=== PATIENT | female | born 1990 | race American Indian/Alaskan Native ===

== ENCOUNTER 2018-03-30 19:46 | Outpatient (CLI) | payer MEDICAID | END 2018-03-30 20:52 | disposition home or self-care (01) | LOC: TRG 19:46 | PROVIDERS: ATTEND Obstetrics & Gynecology | DX: O47.1 False labor at or after 37 completed weeks of gestation (principal); Z3A.38 38 weeks gestation of pregnancy | CPT/HCPCS: 59025 ==

== ENCOUNTER 2018-08-28 10:48 | Emergency (ER) | payer MEDICAID ==
[2018-08-28 10:57] VITALS: BP 125/81
--- NOTE | 2018-08-28 11:40 | Emergency Department Report ---
ED Lower Extremity HPI - General Chief Complaint: Extremity Injury, Lower Stated Complaint: BUMP ON LEFT ANKLE Time Seen by Provider: 08/28/18 11:27 Source: patient Mode of arrival: Ambulatory Limitations: No Limitations - History of Present Illness Initial Comments: This is a pleasant 27-year-old female who reports that she is not , who presents to the ER with a complaint of nontraumatic left lateral foot cyst, present for months, which started during her previous . She reports the cyst is constant, does not radiate anywhere, occasionally aching in nature, and physical discomfort decreases with rest, and with ibuprofen. Denies fevers, chills, redness, pus, streaking, weakness, numbness. Denies other complaints. Complaint: other -: Gradual, month(s) Injury: Foot: Left Type of Injury: other (no mechanism of injury) Severity: mild Improves With: NSAID Worsens With: weight bearing, movement, palpation Context: other (no mechanism of injury) Other Symptoms: other (minimal swelling) Associated Symptoms: ambulatory Treatments Prior to Arrival: NSAIDS - Related Data Previous Rx's Medication Instructions Recorded Last Taken Type Ferrous Sulfate 325 mg PO BID #60 tablet. 04/16/18 Unknown Rx HYDROcodone/APAP 5-325 [[place] 1 each PO Q6HR PRN #20 tablet 04/16/18 Unknown Rx 5/325] Ibuprofen [Motrin] 800 mg PO Q8HR PRN #30 tablet 04/16/18 Unknown Rx Allergies Allergy/AdvReac Type Severity Reaction Status Date / Time No Known Allergies Allergy Verified 08/28/18 10:53 ED Review of Systems ROS: Stated complaint: BUMP ON LEFT ANKLE Other details as noted in HPI Constitutional: denies: fever Respiratory: denies: cough Cardiovascular: denies: chest pain Gastrointestinal: denies: abdominal pain Genitourinary: denies: dysuria Musculoskeletal: denies: back pain, myalgia Skin: denies: rash Neurological: denies: headache, weakness ED Past Medical Hx - Past Medical History Previous Medical History?: No Hx Hypertension: No Hx Diabetes: No Hx Deep Vein Thrombosis: No Hx Renal Disease: No Hx Sickle Cell Disease: No Hx Seizures: No Hx Asthma: No Hx HIV: No - Surgical History Past Surgical History?: Yes Additional Surgical History: right knee - Social History Smoking Status: Never Smoker Substance Use Type: Alcohol - Medications Home Medications: Home Medications Medication Instructions Recorded Confirmed Last Taken Type Ferrous Sulfate 325 mg PO BID #60 tablet. 04/16/18 Unknown Rx HYDROcodone/APAP 5-325 [[place] 1 each PO Q6HR PRN #20 tablet 04/16/18 Unknown Rx 5/325] Ibuprofen [Motrin] 800 mg PO Q8HR PRN #30 tablet 04/16/18 Unknown Rx ED Physical Exam - General Limitations: No Limitations General appearance: alert, in no apparent distress - Head Head exam: Present: atraumatic, normocephalic - Eye Eye exam: Present: normal appearance, EOMI. Absent: nystagmus - ENT ENT exam: Present: normal exam, normal orophraynx, mucous membranes moist, normal external ear exam - Neck Neck exam: Present: normal inspection, full ROM. Absent: tenderness, meningismus - Respiratory Respiratory exam: Present: normal lung sounds bilaterally. Absent: respiratory distress - Cardiovascular Cardiovascular Exam: Present: regular rate, normal rhythm, normal heart sounds. Absent: bradycardia, tachycardia, irregular rhythm, systolic murmur, diastolic murmur, rubs, gallop - GI/Abdominal GI/Abdominal exam: Present: soft. Absent: distended, tenderness, guarding, rebound, rigid, pulsatile mass - Extremities Exam Extremities exam: Present: normal inspection (on the posterior lateral aspect of the left foot, there is a well-circumscribed cyst, 2 x 3 cm, nontender, with the redness, pus or streaking.Appears to be fluid filled.), full ROM, other (2+ pulses noted in the bilateral upper, lower extremities. Compartments soft. No long bony tenderness. The pelvis is stable.). Absent: tenderness, calf tenderness - Back Exam Back exam: Present: normal inspection, full ROM. Absent: tenderness, CVA tenderness (R), paraspinal tenderness, vertebral tenderness - Neurological Exam Neurological exam: Present: alert, oriented X3, CN II-XII intact, normal gait, other (Extraocular movements intact. Tongue midline. No facial droop. Facial sensation intact to light touch in the V1, V2, V3 distribution bilaterally. 5 and 5 strength in 4 extremities.. Sensation is intact to light touch in 4 extremities.). Absent: motor sensory deficit - Psychiatric Psychiatric exam: Present: normal affect, normal mood - Skin Skin exam: Present: warm, dry, intact, normal color. Absent: rash ED Course Vital Signs 08/28/18 10:53 Temperature 98.1 F Pulse Rate 81 Respiratory 16 Rate Blood Pressure 125/81 O2 Sat by Pulse 99 Oximetry ED Lower Extremity MDM - Lab Data Vital Signs 08/28/18 10:53 Temperature 98.1 F Pulse Rate 81 Respiratory 16 Rate Blood Pressure 125/81 O2 Sat by Pulse 99 Oximetry - Medical Decision Making Differential diagnosis, including not limited to: Cyst Assessment and plan: 27-year-old female with nontender left lateral foot cyst, present for months, is not clinically consistent with abscess, cellulitis, or compartment syndrome. Explained to patient that condition is not emergent, and that she may follow up electively as an outpatient, either with dermatology or plastic surgery, for non-urgent intervention. Patient verbalized understanding. Also advised patient that she may benefit from shoes that have a wide with. She may take [id number]-[id number] medication as needed. Critical care attestation.: If time is entered above; I have spent that time in minutes in the direct care of this critically ill patient, excluding procedure time. ED Disposition Clinical Impression: Skin cyst Disposition: DC-01 TO HOME OR SELFCARE Is pt being admited?: No Does the pt Need Aspirin: No Condition: Stable Instructions: Skin Pseudocyst (ED) Additional Instructions: Patient likely has benign skin cyst, typically not dangerous or life- threatening. Weightbearing as tolerated, physical activities as tolerated, patient may benefit from shoes that have a wide with, and patient may take [id number], ibuprofen, up to 600 mg, with food, every 6 hours as needed for pain, alternating with acetaminophen, [id number], 650 mg, every 4-6 hours as needed for pain. Patient may follow up with a digital project coordinator or plastic surgeon as needed for lori ctive aspiration and cyst removal, if the patient so desires. For the patient's convenience, local advertising specialist and plastic surgeon had been listed in discharge paperwork. Please return to the ER right away with redness, pus, streaking, fevers, chills, new, worsening or different symptoms. Referrals: AYLIN DINERO MD [Staff Physician] - as needed FIDE BONILLA MD [Staff Physician] - as needed
--- NOTE | 2018-08-28 12:45 | XRay Report ---
FINAL REPORT EXAM: XR ANKLE 3+V LT HISTORY: pain and swelling TECHNIQUE: AP, oblique and lateral radiographs of the left ankle. PRIORS: None. FINDINGS: No fracture. No dislocation. Normal mineralization. No soft tissue abnormality. The ankle mortise is symmetric. IMPRESSION: Normal left ankle.
== END 2018-08-28 11:47 | disposition home or self-care (01) ==
LOC: ED 10:48
DX: L72.9 Follicular cyst of the skin and subcutaneous tissue, unspecified (principal)
CPT/HCPCS: 99283

== ENCOUNTER 2019-03-27 10:54 | Emergency (ER) | payer MEDICAID ==
[2019-03-27 11:13] VITALS: BP 132/81
--- NOTE | 2019-03-27 11:13 | Emergency Department Report ---
Blank Doc - Documentation Documentation: This is a 28-year-old female that presents with left upper chest area abscess. This initial assessment/diagnostic orders/clinical plan/treatment(s) is/are subject to change based on patient's health status, clinical progression and re- assessment by fellow clinical providers in the ED. Further treatment and workup at subsequent clinical providers discretion. Patient/guardians urged not to elope from the ED as their condition may be serious if not clinically assessed and managed. Initial orders include: 1- Patient sent to [facility] for further evaluation and treatment
[2019-03-27] MEDS ORDERED: IBUPROFEN PO ONE (13:25)
--- NOTE | 2019-03-27 13:55 | Emergency Department Report ---
Abscess Boil HPI - HPI Chief Complaint: Animal Bite Stated Complaint: SPIDER BITE Time Seen by Provider: 03/27/19 11:11 Duration: >1 Week Location: Chest Severity: Moderate History: Yes Pain, Yes Insect Bite (possible), No Fever, No Purulent Drainage, No Numbness, No Foreign Body, No Previous History HPI: This is a 28-year-old female presents ED complaining of painful swelling to her left upper shoulder. Patient states about last week she was outside when she saw a spider on her she tested it off. Patient states she went to urgent care given some prednisone and Keflex patient states the symptoms of worsening see in the mass more painful. She denies fevers/chills/nausea vomiting. Home Medications: Previous Rx's Medication Instructions Recorded Last Taken Type Ferrous Sulfate 325 mg PO BID #60 tablet. 04/16/18 Unknown Rx HYDROcodone/APAP 5-325 [[place] 1 each PO Q6HR PRN #20 tablet 04/16/18 Unknown Rx 5/325] Clindamycin [Clindamycin CAP] 300 mg PO Q8H #12 cap 03/27/19 Unknown Rx Ibuprofen [Motrin 800 MG tab] 800 mg PO Q8HR PRN #30 tablet 03/27/19 Unknown Rx Sulfamethoxazole/Trimethoprim 1 each PO BID #20 tablet 03/27/19 Unknown Rx [Bactrim DS TAB] Allergies/Adverse Reactions: Allergies Allergy/AdvReac Type Severity Reaction Status Date / Time No Known Allergies Allergy Verified 08/28/18 10:53 ED Review of Systems ROS: Stated complaint: SPIDER BITE Other details as noted in HPI Comment: All other systems reviewed and negative ED Past Medical Hx - Past Medical History Previous Medical History?: No Hx Hypertension: No Hx Diabetes: No Hx Deep Vein Thrombosis: No Hx Renal Disease: No Hx Sickle Cell Disease: No Hx Seizures: No Hx Asthma: No Hx HIV: No - Surgical History Past Surgical History?: Yes Additional Surgical History: right knee - Social History Smoking Status: Never Smoker Substance Use Type: None - Medications Home Medications: Home Medications Medication Instructions Recorded Confirmed Last Taken Type Ferrous Sulfate 325 mg PO BID #60 tablet. 04/16/18 Unknown Rx HYDROcodone/APAP 5-325 [[place] 1 each PO Q6HR PRN #20 tablet 04/16/18 Unknown Rx 5/325] Clindamycin [Clindamycin CAP] 300 mg PO Q8H #12 cap 03/27/19 Unknown Rx Ibuprofen [Motrin 800 MG tab] 800 mg PO Q8HR PRN #30 tablet 03/27/19 Unknown Rx Sulfamethoxazole/Trimethoprim 1 each PO BID #20 tablet 03/27/19 Unknown Rx [Bactrim DS TAB] ED Abscess Boil Physical Exam - Exam General: Vital signs noted. No distress. Alert and acting appropriately. Size: >5 cm Exam: Yes Tenderness, Yes Fluctuance, Yes Surrounding Cellulites/Erythema, Yes Normal Neurologic Exam, Yes Normal Circulation, No Lymphangitis, No Crepitation, No Heart Murmur Exam: Tender, almost 10 cm semi-fluctuant mass noted left upper pectoralis above the left breast close to the shoulder anteriorly I & D Note - I & D Note I & D Note: Patient positioned appropriately, 15cc lidocaine with/without epinephrine was used as a local anesthetic. #11 blade scalpal used for single incision. Additional local anesthetic injected into surrounding viable tissue prior to blunt dissection of loculated adhesions. Copius drainage of pus. Wound packed with iodoform gauze. Procedure tolerated without complications. Wound dressed with sterile 4x4 guaze and paper tape. Pt tolerated procedure well. ED Course Vital Signs 03/27/19 11:12 Temperature 98.2 F Pulse Rate 86 Respiratory 18 Rate Blood Pressure 132/81 O2 Sat by Pulse 99 Oximetry Critical care attestation.: If time is entered above; I have spent that time in minutes in the direct care of this critically ill patient, excluding procedure time. ED Medical Decision Making - Medical Decision Making 28-year-old female presents with left anterior shoulder abscess from a spider bite Assessment strain problems, see I&D note Discussed return in 3 days for wound check and packing removal Past sensory normal patient distress she understands instructions given. ED Disposition Clinical Impression: Abscess of left shoulder Disposition: DC-01 TO HOME OR SELFCARE Is pt being admited?: No Does the pt Need Aspirin: No Condition: Stable Instructions: Abscess (ED), Abscess Incision and Drainage (ED) Additional Instructions: Make sure to follow up with the primary care physician as discussed. Take all your medications as you've been prescribed. Return in 3 days for packing removal and wound check If you have any worsening symptoms or develop new symptoms please return to ED immediately. Prescriptions: Sulfamethoxazole/Trimethoprim [Bactrim DS TAB] 1 each PO BID #20 tablet Clindamycin [Clindamycin CAP] 300 mg PO Q8H #12 cap Ibuprofen [Motrin 800 MG tab] 800 mg PO Q8HR PRN #30 tablet PRN Reason: Pain, Moderate (4-6) Referrals: BENJI DECKER MD [Referring] - 3-5 Days [facility] [Outside] - 3-5 Days Forms: Accompanied Note, Work/School Release Form(ED) Time of Disposition: 14:28
== END 2019-03-27 14:54 | disposition home or self-care (01) ==
LOC: ED 10:54
DX: L02.414 Cutaneous abscess of left upper limb (principal); Z98.890 Other specified postprocedural states; Z79.899 Other long term (current) drug therapy
CPT/HCPCS: 99282

== ENCOUNTER 2019-03-30 19:45 | Emergency (ER) | payer MEDICAID ==
--- NOTE | 2019-03-30 20:11 | Event Note ---
ED Screening Note Date of service: 03/30/19 Time: 20:10 ED Screening Note: This is a 28 y.o. F. that presents to the ER for packing removal and wound reevaluation for I&D 3 days ago. Denies new symptoms This initial assessment/diagnostic orders/clinical plan/treatment(s) is/are subject to change based on patients health status, clinical progression and re- assessment by fellow clinical providers in the ED. Further treatment and workup at subsequent clinical providers discretion. Patient/guardian urged not to elope from the ED as their condition may be serious if not clinically assessed and managed. Initial orders include: [facility] for further evaluation.
[2019-03-30] MEDS ORDERED: NACL 0.9% 500 ML IR ONE (22:02)
[2019-03-30] MEDS ORDERED: NACL 0.9% IR ONE (22:02)
[2019-03-30] MEDS ORDERED: MORPHINE IV ONE (22:36)
[2019-03-30] MEDS ORDERED: CLEOCIN 900 MG/50 mL 900 MG/50 ML BAG IV ONE (22:36)
[2019-03-30] MEDS ORDERED: TORADOL IV ONE (22:37)
[2019-03-30] MEDS ORDERED: ZOFRAN IV ONE (22:37)
[2019-03-30] MEDS ORDERED: NACL 0.9% 1000 ML 1,000 ML IV ONE (22:38)
[2019-03-30] MEDS ORDERED: VANCOMYCIN/NS 1 GM/250 ML 1 GM/250 ML BAG IV ONE (22:46)
[2019-03-30] MEDS ORDERED: VANCOMYCIN 2,000 MG in NACL 0.9% 500 ML 500 ML IV ONE (23:00)
[2019-03-30 23:22] LABS: Basophils % (Auto) 0.2 % (0.0-1.8); Eosinophils # (Auto) 0.2 K/mm3 (0.0-0.4); Eosinophils % (Auto) 2.6 % (0.0-4.3); Hematocrit 36.2 % (30.3-42.9); Hemoglobin 11.6 gm/dl (10.1-14.3); Lymphocytes # (Auto) 3.1 K/mm3 (1.2-5.4); Lymphocytes % (Auto) 32.8 % (13.4-35.0); Mean Corpuscular HGB Conc 32 % (30-34); Monocytes # (Auto) 0.9 K/mm3 (0.0-0.8); Monocytes % (Auto) 9.9 % (0.0-7.3); Platelet Count 348 K/mm3 (140-440); Red Blood Count 5.23 M/mm3 (3.65-5.03); Red Cell Distribution Width 13.8 % (13.2-15.2)
[2019-03-30 23:27] LABS: Mean Corpuscular Volume 69 fl (79-97)
[2019-03-30 23:39] LABS: Alanine Aminotransferase 11 units/L (7-56); Albumin 3.9 g/dL (3.9-5); BUN/Creatinine Ratio 13; Blood Urea Nitrogen 9 mg/dL (7-17); Calcium 9.5 mg/dL (8.4-10.2); Hemolysis Index 16
--- NOTE | 2019-03-31 02:08 | Cat Scan Report ---
CT chest with contrast INDICATION : Left chest wall abscess, patient states iit started about 2 weeks ago and has gotten wor se.. TECHNIQUE: 100 mL of intravenous contrast administered. All CT scans at this location are performed using CT dose reduction for ALARA by means of automated exposure control. COMPARISON: None FINDINGS: There is a small subcutaneous collection measuring 2.2 cm in maximal dimension along the l eft upper chest on image #23 of series #4. There is surrounding inflammatory stranding and skin indur ation. There are also shotty left axillary lymph nodes which may be reactive in this situation. There is questionable mild nodularity within the left breast. The heart and great vessels appear unremarkable with no pathologic adenopathy. Lungs are clear. Limited imaging of the upper abdomen shows nothing acute. There is no acute osseous abnormality. Norm al spinal alignment. IMPRESSION: 1. Subcutaneous collection suggesting abscess formation over the upper left chest wall anteriorly. Gi estelita this finding in combination with question of mild breast nodularity and shotty left axillary lymp h nodes, dedicated mammographic follow-up should be considered. 2. Clear lungs. Signer Name: Fernando Vargas MD Signed: 03/31/2019 2:03 AM Workstation Name: [id number]
[2019-03-31] MEDS ORDERED: ZOFRAN IV ONE (02:49)
[2019-03-31] MEDS ORDERED: XYLOCAINE 1% MPF 5 mL INFILTRATI ONE (02:49)
[2019-03-31] MEDS ORDERED: DILAUDID IV ONE (02:49)
--- NOTE | 2019-03-31 04:22 | Emergency Department Report ---
ED General Adult HPI - General Chief complaint: Laceration/Recheck/Suture Stated complaint: ABCESS Time Seen by Provider: 03/30/19 20:09 Source: patient Mode of arrival: Ambulatory Limitations: No Limitations - History of Present Illness Initial comments: Patient is a 28-year-old [place] female with no past medical history who presents to the ED recombinant of acute onset persistent severe swollen left upper chest wall draining maculopapular fluctuant rash with thick purulent malodorous discharge for the last 3 days. Patient was seen and evaluated in this ED for the same 3 days ago and had I and D procedure performed with packing. Patient states that the packing came loose and the wounds started draining purulent discharge malodorous smell. Patient states that she is currently taking clindamycin and Bactrim DS for the same. Patient states that initially the rash began as some mild papule and was being due to an unknown insect bite and was treated as a locali allergic reaction with prednisone for 5 days. The patient states that the rash got worse until becoming fluctuant, severely painful with swelling extending to her left breast. Patient states that when she was admitted to this ED 3 days ago and 90 procedure was performed and she was started on oral antibiotics which she has been taking for the last 3 days. Patient denies fever, chills, nausea, vomiting, dizziness, headache, cough, sore throat, dysphagia, dysphonia, abdominal pain, numbness and tingling of upper extremities bilaterally or syncope or loss of consciousness. MD Complaint: Left upper chest wall abscess with purulent dsicharge -: Gradual, week(s) (1) Location: chest (left upper chest wall) Radiation: non-radiation Severity scale (0 -10): 8 Quality: aching, sharp Consistency: constant Improves with: none Worsens with: none Associated Symptoms: denies other symptoms, chest pain (from the swollen erythem atous rash), fever/chills, loss of appetite, rash (Swollen erythematous rash with purulent discharge). denies: confusion, cough, diaphoresis, headaches, malaise, nausea/vomiting, seizure, shortness of breath, syncope Treatments Prior to Arrival: none - Related Data Previous Rx's Medication Instructions Recorded Last Taken Type Ferrous Sulfate 325 mg PO BID #60 tablet. 04/16/18 Unknown Rx HYDROcodone/APAP 5-325 [[place] 1 each PO Q6HR PRN #20 tablet 04/16/18 Unknown Rx 5/325] Clindamycin [Clindamycin CAP] 300 mg PO Q8H #12 cap 03/27/19 Unknown Rx Ibuprofen [Motrin 800 MG tab] 800 mg PO Q8HR PRN #30 tablet 03/27/19 Unknown Rx Sulfamethoxazole/Trimethoprim 1 each PO BID #20 tablet 03/27/19 Unknown Rx [Bactrim DS TAB] Acetaminophen/Codeine [Tylenol 1 tab PO Q6H PRN #15 tab 03/31/19 Unknown Rx /Codeine # 3 tab] Ondansetron [Zofran Odt] 4 mg PO Q8HR PRN #20 tab.rapdis 03/31/19 Unknown Rx Allergies Allergy/AdvReac Type Severity Reaction Status Date / Time No Known Allergies Allergy Verified 08/28/18 10:53 ED Review of Systems ROS: Stated complaint: ABCESS Other details as noted in HPI Constitutional: denies: chills, fever Eyes: denies: eye pain, eye discharge, vision change ENT: denies: ear pain, throat pain Respiratory: denies: cough, shortness of breath, wheezing Cardiovascular: chest pain (left upper chest wall pain with purulent discharge from erythematous maculopapular rash ). denies: palpitations, dyspnea on exertion, edema, syncope, paroxysmal nocturnal dyspnea Endocrine: no symptoms reported. denies: flushing, intolerance to cold, intolerance to heat, increased hunger, increased thirst, increased urine Gastrointestinal: denies: abdominal pain, nausea, diarrhea Genitourinary: denies: urgency, dysuria, discharge Musculoskeletal: denies: back pain, joint swelling, arthralgia Skin: rash (erythematous maculopapular rash with purulent malodorous discharge). denies: lesions Neurological: denies: headache, weakness, paresthesias Psychiatric: denies: anxiety, depression Hematological/Lymphatic: denies: easy bleeding, easy bruising ED Past Medical Hx - Past Medical History Previous Medical History?: No Hx Hypertension: No Hx Diabetes: No Hx Deep Vein Thrombosis: No Hx Renal Disease: No Hx Sickle Cell Disease: No Hx Seizures: No Hx Asthma: No Hx HIV: No - Surgical History Past Surgical History?: Yes Additional Surgical History: right knee - Social History Smoking Status: Never Smoker Substance Use Type: None - Medications Home Medications: Home Medications Medication Instructions Recorded Confirmed Last Taken Type Ferrous Sulfate 325 mg PO BID #60 tablet. 04/16/18 Unknown Rx HYDROcodone/APAP 5-325 [[place] 1 each PO Q6HR PRN #20 tablet 04/16/18 Unknown Rx 5/325] Clindamycin [Clindamycin CAP] 300 mg PO Q8H #12 cap 03/27/19 Unknown Rx Ibuprofen [Motrin 800 MG tab] 800 mg PO Q8HR PRN #30 tablet 03/27/19 Unknown Rx Sulfamethoxazole/Trimethoprim 1 each PO BID #20 tablet 03/27/19 Unknown Rx [Bactrim DS TAB] Acetaminophen/Codeine [Tylenol 1 tab PO Q6H PRN #15 tab 03/31/19 Unknown Rx /Codeine # 3 tab] Ondansetron [Zofran Odt] 4 mg PO Q8HR PRN #20 tab.rapdis 03/31/19 Unknown Rx ED Physical Exam - General Limitations: No Limitations General appearance: alert, in no apparent distress - Head Head exam: Present: atraumatic, normocephalic, normal inspection - Eye Eye exam: Present: normal appearance, PERRL, EOMI Pupils: Present: normal accommodation - ENT ENT exam: Present: normal exam, normal orophraynx, mucous membranes moist, TM's normal bilaterally, normal external ear exam - Neck Neck exam: Present: normal inspection, full ROM - Respiratory Respiratory exam: Present: normal lung sounds bilaterally, chest wall tenderness (Palpable tenderness of left upper chest wall due to erythematous maculopapular rash with thick purulent malodorous discharge). Absent: respiratory distress, wheezes, rales, rhonchi, stridor, decreased breath sounds - Cardiovascular Cardiovascular Exam: Present: regular rate, normal rhythm. Absent: systolic murmur, diastolic murmur, rubs, gallop - GI/Abdominal GI/Abdominal exam: Present: soft, normal bowel sounds. Absent: distended, tenderness, guarding, rebound, hyperactive bowel sounds, hypoactive bowel sounds, organomegaly - Rectal Rectal exam: Present: deferred - Extremities Exam Extremities exam: Present: normal inspection, full ROM, normal capillary refill - Back Exam Back exam: Present: normal inspection, full ROM. Absent: tenderness, CVA tenderness (R), CVA tenderness (L), muscle spasm, paraspinal tenderness, vertebral tenderness - Neurological Exam Neurological exam: Present: alert, oriented X3, CN II-XII intact, normal gait, reflexes normal - Psychiatric Psychiatric exam: Present: normal affect, normal mood - Skin Skin exam: Present: warm, dry, intact, normal color, rash (erythematous maculopapular flexion and rash on left upper chest wall with thick purulent malodorous discharge), erythema ED Course Vital Signs 03/30/19 03/30/19 03/31/19 20:10 23:22 03:18 Temperature 98 F Pulse Rate 84 Respiratory 18 16 16 Rate Blood Pressure 118/74 O2 Sat by Pulse 100 Oximetry - Reevaluation(s) Reevaluation #1: 03/31/19 04:25 This is a 28-year-old female who presented to the ED with worsening left upper chest wall draining abscess with thick purulent malodorous discharge. In the ED, patient is alert and oriented 3 and appears to be in pain. Labs were drawn and patient treated for pain, blood cultures were also collected and the patient started on antibiotics IV. Chest CT scan with contrast was also ordered to characterize the extent of the abscess in the chest wall. On reevaluation, patient's pain is well-controlled with medications and patient resting comfortably in the bed in no distress. Lab test results were reviewed and are all unremarkable. Chest CT scan with contrast shows a small subcutaneous collection measuring 2.2 cm in maximal dimension along the left upper chest on image #23 of series #4. There is surrounding inflammatory stranding and skin induration. There are also shotty left axillary lymph nodes which may be reactiv e in this situation. There is questionable mild nodularity within the left breast. The heart and great vessels appear unremarkable with no pathologic adenopathy. Lungs are clear. The wound was cleaned and thoroughly debrided with normal saline, and 3 parked after all the purulent discharge had been completely evacuated from the wound. The wound was then packed again with iodoform quarter-inch of approximately 20 cm. The patient tolerated the procedure well. The wound was then dressed appropriately with 4 x 4 gauzes and Tegaderm tapes the patient discharged home with more pain medications and advised to continue taking the previously prescribed antibiotics to the event. Patient is advised to return to the ED in 2 days for wound recheck and packing removal. 08/15/19 04:28 ED Medical Decision Making - Lab Data Result diagrams: 03/30/19 22:42 03/30/19 22:42 - Radiology Data Radiology results: report reviewed, image reviewed Findings [facility] [address] [place] [address] Cat Scan Report Signed Patient: DEBBY CARTAGENA MR#: [id number] : 1990 Acct:[id number] Age/Sex: 28 / F ADM Date: 03/30/19 Loc: ED Attending Dr: Ordering Physician: RUPERTO ROQUE Date of Service: 03/30/19 Procedure(s): CT chest w con Accession Number(s): [id number] cc: RUPERTO ROQUE CT chest with contrast INDICATION : Left chest wall abscess, patient states iit started about 2 weeks ago and has gotten worse.. TECHNIQUE: 100 mL of intravenous contrast administered. All CT scans at this location are performed using CT dose reduction for ALARA by means of automated exposure control. COMPARISON: None FINDINGS: There is a small subcutaneous collection measuring 2.2 cm in maximal dimension along the left upper chest on image #23 of series #4. There is surrounding inflammatory stranding and skin induration. There are also shotty left axillary lymph nodes which may be reactive in this situation. There is questionable mild nodularity within the left breast. The heart and great vessels appear unremarkable with no pathologic adenopathy. Lungs are clear. Limited imaging of the upper abdomen shows nothing acute. There is no acute osseous abnormality. Normal spinal alignment. IMPRESSION: 1. Subcutaneous collection suggesting abscess formation over the upper left chest wall anteriorly. Given this finding in combination with question of mild breast nodularity and shotty left axillary lymph nodes, dedicated mammographic follow-up should be considered. 2. Clear lungs. Signer Name: Fernando Vargas MD Signed: 03/31/2019 2:03 AM Workstation Name: [id number] Transcribed By: JAQUI Dictated By: Fernando Vargas MD Electronically Authenticated By: Fernando Vargas MD Signed Date/Time: 03/31/19 0203 - Medical Decision Making This is a 28-year-old female who presented to the ED with worsening left upper chest wall draining abscess with thick purulent malodorous discharge. In the ED, patient is alert and oriented 3 and appears to be in pain. Labs were drawn and patient treated for pain, blood cultures were also collected and the patient started on antibiotics IV. Chest CT scan with contrast was also ordered to characterize the extent of the abscess in the chest wall. On reevaluation, patient's pain is well-controlled with medications and patient resting comfortably in the bed in no distress. Lab test results were reviewed and are all unremarkable. Chest CT scan with contrast shows a small subcutaneous collection measuring 2.2 cm in maximal dimension along the left upper chest on image #23 of series #4. There is surrounding inflammatory stranding and skin induration. There are also shotty left axillary lymph nodes which may be reactive in this situation. There is questionable mild nodularity within the left breast. The heart and great vessels appear unremarkable with no pathologic adenopathy. Lungs are clear. The wound was cleaned and thoroughly debrided with normal saline, and 3 parked after all the purulent discharge had been completely evacuated from the wound. The wound was then packed again with iodoform quar ter-inch of approximately 20 cm. The patient tolerated the procedure well. The wound was then dressed appropriately with 4 x 4 gauzes and Tegaderm tapes the patient discharged home with more pain medications and advised to continue taking the previously prescribed antibiotics to the event. Patient is advised to return to the ED in 2 days for wound recheck and packing removal. - Differential Diagnosis cellulitis; chest wall abscess; cutaneous abscess of chest wall Critical care attestation.: If time is entered above; I have spent that time in minutes in the direct care of this critically ill patient, excluding procedure time. ED Disposition Clinical Impression: Abscess or cellulitis of chest wall Disposition: DC-01 TO HOME OR SELFCARE Is pt being admited?: No Does the pt Need Aspirin: No Condition: Stable Instructions: Cellulitis (ED), Abscess Incision and Drainage (ED) Additional Instructions: Continue taking her previously prescribed antibiotics to be and, take pain medication as needed and return to the ED immediately if symptoms get worse. Otherwise return to the ED in 2 days for wound recheck and packing removal. Consider following up with your primary care physician in 7-10 days for reevaluation. Consider also following up with your [employer]Y DIRECTOR physician fall and mammogram test in the next 7-10 days. Prescriptions: Acetaminophen/Codeine [Tylenol /Codeine # 3 tab] 1 tab PO Q6H PRN #15 tab PRN Reason: Pain , Severe (7-10) Ondansetron [Zofran Odt] 4 mg PO Q8HR PRN #20 tab.rapdis PRN Reason: Nausea Referrals: BENJI DECKER MD [Primary Care Provider] - 3-5 Days Forms: Work/School Release Form(ED) Time of Disposition: 04:32 Print Language: PORTUGUESE
[2019-03-31 05:06] VITALS: BP 121/77
== END 2019-03-31 05:05 | disposition home or self-care (01) ==
LOC: ED 19:45
DX: L02.213 Cutaneous abscess of chest wall (principal); L03.313 Cellulitis of chest wall; Z79.899 Other long term (current) drug therapy
CPT/HCPCS: 36415; 71260; 80053; 85025; 87040; 96365; 96366; 96375; 96376; 99284; J1170; J1885; J2270; J2405; J3370; J7030; J7040; Q9967

== ENCOUNTER 2019-04-02 07:33 | Emergency (ER) | payer MEDICAID ==
--- NOTE | 2019-04-02 09:15 | Emergency Department Report ---
- General Chief Complaint: Laceration/Recheck/Suture Stated Complaint: PACKING REMOVAL Time Seen by Provider: 04/02/19 08:14 Source: patient Mode of arrival: Ambulatory Limitations: No Limitations - History of Present Illness Initial Comments: Female to emergency Department for reevaluation incision and drainage and packing to the left upper chest region. She was last seen on this past Thursday provider who incised redressing the wound and packed it with oral form packing in a plaster to follow-up in 3 days for reevaluation. She is taking antibodies are. Reports no chest pain or palpitation. No nausea, vomiting, sweats. -: Gradual Location: chest Associated Symptoms: none Treatments Prior to Arrival: bandage, other - Related Data Previous Rx's Medication Instructions Recorded Last Taken Type Ferrous Sulfate 325 mg PO BID #60 tablet. 04/16/18 Unknown Rx HYDROcodone/APAP 5-325 [[place] 1 each PO Q6HR PRN #20 tablet 04/16/18 Unknown Rx 5/325] Clindamycin [Clindamycin CAP] 300 mg PO Q8H #12 cap 03/27/19 Unknown Rx Ibuprofen [Motrin 800 MG tab] 800 mg PO Q8HR PRN #30 tablet 03/27/19 Unknown Rx Sulfamethoxazole/Trimethoprim 1 each PO BID #20 tablet 03/27/19 Unknown Rx [Bactrim DS TAB] Acetaminophen/Codeine [Tylenol 1 tab PO Q6H PRN #15 tab 03/31/19 Unknown Rx /Codeine # 3 tab] Ondansetron [Zofran Odt] 4 mg PO Q8HR PRN #20 tab.rapdis 03/31/19 Unknown Rx Chlorhexidine Gluconate [Hibiclens] 10 ml TP BID #240 liquid 04/02/19 Unknown Rx Mupirocin [Bactroban 2%] 15 applic TP TID #15 gm 04/02/19 Unknown Rx Allergies Allergy/AdvReac Type Severity Reaction Status Date / Time No Known Allergies Allergy Verified 04/02/19 07:36 ED Review of Systems ROS: Stated complaint: PACKING REMOVAL Other details as noted in HPI Comment: All other systems reviewed and negative ED Past Medical Hx - Past Medical History Hx Hypertension: No Hx Diabetes: No Hx Deep Vein Thrombosis: No Hx Renal Disease: No Hx Sickle Cell Disease: No Hx Seizures: No Hx Asthma: No Hx HIV: No - Surgical History Additional Surgical History: right knee - Social History Smoking Status: Never Smoker Substance Use Type: None - Medications Home Medications: Home Medications Medication Instructions Recorded Confirmed Last Taken Type Ferrous Sulfate 325 mg PO BID #60 tablet. 04/16/18 Unknown Rx HYDROcodone/APAP 5-325 [[place] 1 each PO Q6HR PRN #20 tablet 04/16/18 Unknown Rx 5/325] Clindamycin [Clindamycin CAP] 300 mg PO Q8H #12 cap 03/27/19 Unknown Rx Ibuprofen [Motrin 800 MG tab] 800 mg PO Q8HR PRN #30 tablet 03/27/19 Unknown Rx Sulfamethoxazole/Trimethoprim 1 each PO BID #20 tablet 03/27/19 Unknown Rx [Bactrim DS TAB] Acetaminophen/Codeine [Tylenol 1 tab PO Q6H PRN #15 tab 03/31/19 Unknown Rx /Codeine # 3 tab] Ondansetron [Zofran Odt] 4 mg PO Q8HR PRN #20 tab.rapdis 03/31/19 Unknown Rx Chlorhexidine Gluconate [Hibiclens] 10 ml TP BID #240 liquid 04/02/19 Unknown Rx Mupirocin [Bactroban 2%] 15 applic TP TID #15 gm 04/02/19 Unknown Rx ED Physical Exam - General Limitations: No Limitations General appearance: alert, in no apparent distress - Head Head exam: Present: atraumatic, normocephalic - Eye Eye exam: Present: normal appearance - ENT ENT exam: Present: mucous membranes moist - Neck Neck exam: Present: normal inspection - Respiratory Respiratory exam: Present: normal lung sounds bilaterally. Absent: respiratory distress - Cardiovascular Cardiovascular Exam: Present: regular rate, normal rhythm. Absent: systolic murmur, diastolic murmur, rubs, gallop - GI/Abdominal GI/Abdominal exam: Present: soft, normal bowel sounds - Extremities Exam Extremities exam: Present: normal inspection - Back Exam Back exam: Present: normal inspection - Neurological Exam Neurological exam: Present: alert, oriented X3 - Psychiatric Psychiatric exam: Present: normal affect, normal mood - Skin Skin exam: Present: warm, other (the packing bandages are in place. There is wound of about 2 cm in diameter posterior discharged noted. There is some excoriation and erosion to the wound borders and thinning of the skin). Absent: rash ED Course Vital Signs 04/02/19 07:36 Temperature 97.9 F Pulse Rate 93 H Respiratory 16 Rate Blood Pressure 138/79 O2 Sat by Pulse 100 Oximetry - Procedure Description Procedures done: Wound was uncovered packing was removed in its entirety. No foreign bodies remaining. There was a moderate amount of pus discharge that was remaining in the wound. He was placed in Trendelenburg. The wound was expressed and drained, irrigated with copious saline and exudate were scraped and removed achieving a healthy leading from the wound. The wound was then all wash with a surgical scrub brush solution and then again copious irrigation with saline. At the further expression of the wound. There was no remaining pus discharge. ED Medical Decision Making - Medical Decision Making 28-year-old female with an insect bite to the chest for follow-up visit. The initial visit with the primary care, was treated with sterile syndrome was followed up in emergency department was she had her initial incision and drainage followed by a second incision and drainage revision on this past Thursday. Presents today for follow follow-up. The wound is improving. The patient is pleased with the progress. Thus far. We'll place the patient and admitted. Pressure bandage and advised her on appropriate washing of the wound and advised also to get him reevaluated in 24-48 hours to ensure that the healing progression Critical care attestation.: If time is entered above; I have spent that time in minutes in the direct care of this critically ill patient, excluding procedure time. ED Disposition Clinical Impression: Encounter for wound re-check Disposition: DC-01 TO HOME OR SELFCARE Is pt being admited?: No Does the pt Need Aspirin: No Condition: Stable Instructions: Wound Healing and Your Diet (ED), Chronic Wound Care (ED), Acute Wound Care (ED), Irrigation Solution (Irrigation), Antibacterial (Single Agent) (On the skin) Prescriptions: Mupirocin [Bactroban 2%] 15 applic TP TID #15 gm Chlorhexidine Gluconate [Hibiclens] 10 ml TP BID #240 liquid Referrals: BENJI DECKER MD [Primary Care Provider] - 24 Hours (Follow-up with 24-48 hours for wound reevaluation. Follow-up in 24-48 hours for wound reevaluation)
[2019-04-02 09:29] VITALS: BP 118/70
== END 2019-04-02 09:30 | disposition home or self-care (01) ==
LOC: ED 07:33
DX: Z48.01 Encounter for change or removal of surgical wound dressing (principal)

== ENCOUNTER 2020-12-28 10:45 | Outpatient (CLI) | payer MEDICAID ==
--- NOTE | 2020-12-28 12:11 | XRay Report ---
RIGHT KNEE 2 VIEWS INDICATION / CLINICAL INFORMATION: PAIN IN RIGHT KNEE COMPARISON: None available. FINDINGS: BONES / JOINT(S): No acute fracture or subluxation. There is screw in the lateral femoral condyle. Th ere is some surface osteophyte formation and cortical irregularity along the articular surface of the lateral femoral condyle which is likely degenerative or posttraumatic in nature. SOFT TISSUES: No significant abnormality. ADDITIONAL FINDINGS: None. Signer Name: Ramírez Bansal MD Signed: 12/28/2020 12:07 PM Workstation Name: [id number]
== END 2020-12-28 10:46 | disposition home or self-care (01) ==
LOC: XRAY 10:45
PROVIDERS: ATTEND Orthopaedic Surgery
DX: M25.761 Osteophyte, right knee (principal)